=== PATIENT | male | born 1970 | race Caucasian/White ===

== ENCOUNTER 2023-03-30 07:10 | Emergency (ER) | payer MEDICAID ==
[~2023-03-30] VITALS: Ht 175.3 cm; Wt 63.0 kg
[2023-03-30 07:15] VITALS: BP 135/82
== END 2023-03-30 08:15 | disposition home or self-care (01) ==
LOC: ER 07:11
DX: I10 Essential (primary) hypertension (principal); F41.9 Anxiety disorder, unspecified; F32.9 Major depressive disorder, single episode, unspecified; F10.10 Alcohol abuse, uncomplicated; Y90.9 Presence of alcohol in blood, level not specified
CPT/HCPCS: 99281

== ENCOUNTER 2023-04-22 06:18 | Emergency (ER) | payer MEDICAID ==
[~2023-04-22] VITALS: Ht 175.3 cm; Wt 63.0 kg
[2023-04-22 06:27] VITALS: BP 151/111
== END 2023-04-22 07:01 | disposition left against medical advice (07) ==
LOC: ER 06:19
DX: F41.9 Anxiety disorder, unspecified (principal); R07.89 Other chest pain; Z53.21 Procedure and treatment not carried out due to patient leaving prior to being seen by health care provider
CPT/HCPCS: 93005; 99281